=== PATIENT | male | born 1990 | race Two or more races ===

== ENCOUNTER → 2023-05-06 08:24 | Outpatient (CLI) | payer SELFPAY ==
--- NOTE | 2023-05-06 08:33 | US_ITS ---
FINAL REPORT CLINICAL HISTORY: ABD PAIN FINDINGS: Sonographic images of the abdomen were obtained. There is fatty infiltration of the liver. The gallbladder has an unremarkable appearance without evidence of gallstones. There is no evidence of biliary ductal dilatation. The common duct is normal. Limited images of the pancreas are unremarkable. The spleen size is normal. The right kidney measures 12.0 cm in length. The left kidney measures 10.5 cm in length. There is normal renal echogenicity. There is no evidence of hydronephrosis. The aorta has an unremarkable appearance. Limited images of the inferior vena cava are unremarkable. IMPRESSION: Fatty liver. Reviewed, Interpreted and Dictated by Emeterio Mendez MD Transcribed by Myriam Castro Authenticated and [facility]
== END ==
LOC: RAD 08:29
PROVIDERS: PCP Nurse Practitioner Family; Visit Provider Nurse Practitioner Family
DX: R10.9 Unspecified abdominal pain (principal)
CPT/HCPCS: 76700